=== PATIENT | female | born 1980 | race Two or more races ===

== ENCOUNTER 2022-08-07 16:25 | Emergency (ER) | payer MEDICAID, OTHER ==
[~2022-08-07] VITALS: Ht 165.1 cm; Wt 73.6 kg
[2022-08-07] MEDS ORDERED: ALBUTEROL SULF 2.5 MG/0.5ML(0.5%) NEB SOLN NEB ONE (17:15)
[2022-08-07] MEDS ORDERED: IPRATROPIUM BROM 0.5 MG/2.5ML INH SOL NEB ONE (17:15)
[2022-08-07 17:19] LABS: Basophils # (auto) 0.1 10 ^3/uL (0-0.2); Basophils % (auto) 1.1 % (0.0-2.0); Eosinophils # (auto) 1.1 10 ^3/uL (0-0.8); Eosinophils % (auto) 9.9 % (0.0-7.0); Hemoglobin 16.1 g/dL (12.2-16.2); Lymphocytes # (auto) 2.5 10 ^3/uL (0.4-5.4); Mean Corpuscular Hgb Conc. 33.5 g/dL (32.0-36.0); Mean Corpuscular Volume 92.6 fL (80.0-100.0); Monocytes # (auto) 0.6 10 ^3/uL (0-1.3); Monocytes % (auto) 5.2 % (0.0-12.0); Neutrophils % (auto) 61.8 % (37.0-80.0); Nucleated Red Blood Cells % 0.1 %; Red Blood Cells 5.18 10^6/uL (4.0-5.20); White Blood Cell 11.3 10^3/uL (4.4-10.8)
[2022-08-07 17:29] LABS: Albumin 4.5 g/dL (3.4-5.0); Calcium 9.4 mg/dL (8.5-10.1); Potassium 4.2 mmol/L (3.5-5.1)
[2022-08-07] MEDS ORDERED: methylPREDNISolone SOD SUCC 125 MG/2 ML VL IV ONE (17:30)
[2022-08-07 17:32] LABS: Bilirubin, Total 0.6 mg/dL (0.2-1.0); Total Protein 8.5 g/dL (6.4-8.2)
[2022-08-07] MEDS ORDERED: PRED20TA2 PO (20:47)
[2022-08-07] MEDS ORDERED: ALBU108A5 IN (20:47)
[2022-08-07 21:00] VITALS: BP 129/68
== END 2022-08-07 21:02 | disposition home or self-care (01) ==
LOC: ER 16:25
DX: J45.901 Unspecified asthma with (acute) exacerbation (principal); R74.8 Abnormal levels of other serum enzymes; Z76.0 Encounter for issue of repeat prescription
CPT/HCPCS: 36415; 71045; 80053; 84484; 85025; 93005; 94640; 96374; 99285; J2930; J7644

== ENCOUNTER 2025-08-25 08:32 | Emergency (ER) | payer MEDICAID ==
[~2025-08-25] VITALS: Ht 165.1 cm; Wt 72.8 kg
[~2025-08-25 08:32] MED LIST: ALBU108A5 IN; PRED20TA2 PO
--- NOTE | 2025-08-25 09:12 | ED.PDOC ---
SOB-HPI HPI Comments 45 y.o female with PMHx of asthma, present to the ED for a chief complaint of SOB that started 2 days ago. Patient reports running out of her inhaler x 2-3 days ago and states is awaiting for PCP to refill to obtain inhaler. Patient's last asthma exacerbation was x 1 year ago. She denies any chest pain, palpitations, fever, chills, nausea, vomiting. Chief Complaint: Shortness of Breath Time Seen by MD: 09:02 Reviewed notes: Nurses Notes, Medications, Allergies Information Source: Patient Mode of Arrival: Ambulatory Severity: Moderate Timing: Days (2) Duration: Since onset Context: At Rest PE Risk Factors: None History of: Asthma Modifying Factors: Nothing Associated Signs and Symptoms: None Past Medical History PAST MEDICAL HISTORY: Asthma Surgical History: Denies all surgeries MASTER OCEAN History: No Pertinent MASTER OCEAN History Social History Smoker: Non-Smoker Alcohol: Denies ETOH Use Drugs: Denies Drug Use Lives In: Home Constitutional: denies: chills, diaphoresis, fatigue, fever, malaise, sweats, weakness, others EENTM: denies: blurred vision, double vision, ear bleeding, ear discharge, ear drainage, ear pain, ear ringing, eye pain, eye redness, hearing loss, mouth pain, mouth swelling, nasal discharge, nose bleeding, nose congestion, nose pain, photophobia, tearing, throat pain, throat swelling, voice changes, others Respiratory: reports: SOB at rest, shortness of breath, SOB with excertion; denies: cough, hemoptysis, orthopnea, stridor, wheezing, others Cardiovascular: reports: Dyspnea on exertion; denies: chest pain, dizzy spells, diaphoresis, edema, irregular heart beat, left arm pain, lightheadedness, palpitations, PND, syncope, others Gastrointestinal: denies: abdomen distended, abdominal pain, blood streaked bowels, constipated, diarrhea, dysphagia, difficulty swallowing, hematemesis, melena, nausea, poor appetite, poor fluid intake, rectal bleeding, rectal pain, vomiting, others Genitourinary: denies: abnormal vagina bleeding, burning, dyspareunia, dysuria, flank pain, frequency, hematuria, incontinence, pain, , vagina discharge, urgency, others Neurological: denies: dizziness, fainting, headache, left sided numbness, left sided weakness, numbness, paresthesia, pre-existing deficit, right sided numbness, right sided weakness, seizure, speech problems, tingling, tremors, weakness, others Musculoskeletal: denies: back pain, gout, joint pain, joint swelling, muscle pain, muscle stiffness, neck pain, others Integumetry: denies: bruises, change in color, change in hair/nails, dryness, laceration, lesions, lumps, rash, wounds, others Allergic/Immunocompromised: denies: Difficulty Healing, Frequent Infections, Hives, Itching, others Hematologic/Lymphatic: denies: anemia, blood clots, easy bleeding, easy bruising, swollen glands, others Endocrine: denies: excessive hunger, excessive sweating, excessive thirst, excessive urination, flushing, intolerance to cold, intolerance to heat, unexplained weight gain, unexplained weight loss, others Psychiatric: denies: anxiety, bipolar disorder, depression, hopeless, panic disorder, schizophrenia, sleepless, suicidal, others All Other Systems: Reviewed and Negative Physical Exam General Appearance: Moderate Distress HEENT: Normal ENT Inspection, Pharynx Normal, TMs Normal Neck: Full Range of Motion, Non-Tender, Normal, Normal Inspection Respiratory: Chest Non-Tender, Lungs Clear, No Accessory Muscle Use, No Respiratory Distress, Normal Breath Sounds Cardiovascular: No Edema, No JVD, No Murmur, No Gallop, Normal Peripheral Pulses, Regular Rate/Rhythm Breast Exam: Deferred Gastrointestinal: No Organomegaly, Non Tender, No Pulsatile Mass, Normal Bowel Sounds, Soft Genitalia: Deferred Pelvic: Deferred Rectal: Deferred Extremities: No calf tenderness, Normal capillary refill, Normal inspection, Normal range of motion, Non-tender, No pedal edema Musculoskeletal : Apperance: Normal Neurologic: Alert, hearing aid repairer II-XII nml as Tested, No Motor Deficits, Normal Affect, Normal Mood, No Sensory Deficits Cerebellar Function: Normal Reflexes: Normal Skin: Dry, Normal Color, Warm Peripheral Pulses: 3+ Radial (R), 3+ Radial (L) Lymphatic: No Adenopathy Was a procedure done? Was a procedure done?: No Differential Dx Differential Diagnosis: Anxiety, Asthma, Bronchitis, Pneumonia, Respiratory Distress, URI X-Ray, Labs, Meds, VS Vital Signs Date Time Temp Pulse Resp B/P (MAP) Pulse Ox O2 Delivery O2 Flow Rate FiO2 08/25/25 09:42 97.7 88 20 163/97 (119) 96 97.7 08/25/25 09:38 Room Air* 0 21 08/25/25 09:27 22 Room Air* 0 21 08/25/25 08:33 97.4 95 14 149/112 96 97.4 Current Medications Medications (Trade) Dose Ordered Sig/Sammy Route Start Time Stop Time Status Last Admin Methylprednisolone Sodium Succinate (Solu Medrol) 125 mg ONCE ONCE IM 08/25/25 09:15 08/25/25 09:16 DC 08/25/25 09:36 Albuterol (Ventolin Medneb) 5 mg ONCE ONCE NEB 08/25/25 09:15 08/25/25 09:16 DC 08/25/25 09:27 Ipratropium Rock (Atrovent Medneb) 0.5 mg ONCE ONCE NEB 08/25/25 09:15 08/25/25 09:16 DC 08/25/25 09:27 Patient alert. Complaining of shortness a breath. Vitals stable. Answering questions. History of asthma. Saturation pristine on room air. Heart rate within normal limits. Respiratory rate within normal limits. No leg swelling. Explained to the patient. Was told to follow up with her primary care physician. Was told to come back if there is any problem. Time of 1ST Reevaluation: 09:10 Reevaluation 1ST: Unchanged Patient Education/Counseling: Diagnosis, Treatment, Prognosis Family Education/Counseling: Diagnosis, Treatment, Prognosis SEPSIS Sepsis Screen Date sepsis recognized/suspect: Aug 25, 2025 Time Sepsis recognized/suspect: 08 Recent Procedure: No On Antibiotic Therapy: No Respiratory Rate >20: No Heart Rate >90: Yes Temp<36 C (96.8 F) or >38.3 C: No SBP <90 or MAP <65 mmHG: No New Acute Mental Status Change: No Is the patient on CPAP, BIPAP,: No Physician Orders Chest Portable (08/25/25 09:05) Vital Signs Date Time Temp Pulse Resp B/P (MAP) Pulse Ox O2 Delivery O2 Flow Rate FiO2 08/25/25 09:42 97.7 88 20 163/97 (119) 96 97.7 08/25/25 09:38 Room Air* 0 21 08/25/25 09:27 22 Room Air* 0 21 08/25/25 08:33 97.4 95 14 149/112 96 97.4 Medications Medications Dose Ordered Sig/Sammy Route Start Time Stop Time Status Last Admin Dose Admin Albuterol 5 mg ONCE ONCE NEB 08/25/25 09:15 08/25/25 09:16 DC 08/25/25 09:27 Ipratropium Rock 0.5 mg ONCE ONCE NEB 08/25/25 09:15 08/25/25 09:16 DC 08/25/25 09:27 Methylprednisolone Sodium Succinate 125 mg ONCE ONCE IM 08/25/25 09:15 08/25/25 09:16 DC 08/25/25 09:36 Departure 1 Departure Time of Disposition: 10:18 Impression: Primary Impression: Acute asthma exacerbation Qualified Codes: J45.901 - Unspecified asthma with (acute) exacerbation Additional Impression: Pneumonitis Disposition: 01 HOME / SELF CARE / HOMELESS Condition: Good e-Prescriptions Albuterol Sulfate (VENTOLIN MDI) 90 Mcg Ih 90 MCG IN Q6HP PRN for 5 Days, #1 MCG Prov: REBECCA MCCURDY MD 08/25/25 Prednisone (Prednisone) 20 Mg Tab 20 MG PO BS for 5 Days, #5 MG Prov: REBECCA MCCURDY MD 08/25/25 Amoxicillin Trihydrate (Amoxicillin) 500 Mg Cap 1 CAP PO TID for 7 Days, #21 CAP Prov: REBECCA MCCURDY MD 08/25/25 Discharged With: Self Critical Care Note Critical Care Time?: No Stability Stability form required: No I personally scribed for REBECCA MCCURDY MD ([email or web address]) on 08/25/25 at 09:12. Electronically submitted by Marlyn Thrasher ([facility]). REBECCA MCCURDY MD Aug 25, 2025 09:12
[2025-08-25] MEDS: ALBUTEROL SULF 2.5 MG/0.5ML(0.5%) NEB SOLN NEB ONE (09:27)
[2025-08-25] MEDS: IPRATROPIUM BROM 0.5 MG/2.5ML INH SOL NEB ONE (09:27)
[2025-08-25] MEDS: methylPREDNISolone SOD SUCC 125 MG/2 ML VL IM ONE (09:36)
[2025-08-25 09:42] VITALS: BP 163/97; PULSE 88; RESP 20; TEMP 97.7; O2SAT 96
--- NOTE | 2025-08-25 09:52 | DVH ---
INDICATION: sob TECHNIQUE: Frontal view of the chest. COMPARISON: CHEST PORTABLE on DOS: 08/07/22, CXRP on DOS: 08/07/22, EKG on DOS: 08/07/22 FINDINGS: . The heart and mediastinal contours are grossly unremarkable. There is no evidence of pleural disease. The lungs are clear. The bony structures of the chest are intact without fracture. IMPRESSION: 1. No evidence of acute disease.
[2025-08-25] MEDS ORDERED: ALBUAER3 IN (10:30)
[2025-08-25] MEDS ORDERED: AMOX500C2 PO (10:30)
[2025-08-25] MEDS ORDERED: PRED20TA2 PO (10:30)
== END 2025-08-25 10:36 | disposition home or self-care (01) ==
LOC: ER 08:32
DX: J45.901 Unspecified asthma with (acute) exacerbation (principal); J98.4 Other disorders of lung; Z79.899 Other long term (current) drug therapy
CPT/HCPCS: 71045; 94640; 96372; 99283; J2919